=== PATIENT | female | born 1940 | race Caucasian/White ===

== ENCOUNTER 2017-11-10 04:04 | Emergency (ER) | payer MEDICARE, BC ==
[2017-11-10 04:27] VITALS: BP 155/68
--- NOTE | 2017-11-10 04:51 | EDM.PDOC ---
ED HPI GENERAL MEDICAL PROBLEM - General Stated Complaint: Swollen, Pian in Right wrist / hand Time Seen by Provider: 11/10/17 04:15 Source of Information: Reports: Patient History Limitations: Reports: No Limitations - History of Present Illness INITIAL COMMENTS - FREE TEXT/NARRATIVE: According to patient she noticed pain and swelling in her right thumb base today afternoon, and over night the pain has spread to her right wrist and also the wrist is swollen.Pain has gradually got worse, presently rate pain at 9/10. Pt claim that she has not hurt her right hand, or does not remember being bit by insect. Pt calims she had some wine the night before and has been eating perales and chicken for the past 3 meals. No fever or chills. No other joint pain or myalgia. Onset: Today Onset Date: 11/09/17 Onset Time: 12:00 Duration: Constant, Getting Worse Location: Reports: Upper Extremity, Right Quality: Reports: Ache Severity: Severe Improves with: Reports: Cold Therapy, Immobilization Worsens with: Reports: Movement Associated Symptoms: Denies: Confusion, Chest Pain, Cough, Fever/Chills, Headaches, Nausea/Vomiting, Rash, Seizure, Shortness of Breath, Syncope, Weakness - Related Data Allergies Allergy/AdvReac Type Severity Reaction Status Date / Time Penicillins Allergy Disorientat Verified 07/25/15 18:05 ion Home Meds: Home Meds Aspirin 81 mg PO DAILY 07/25/15 [History] Cholecalciferol (Vitamin D3) [Vitamin D] 400 units PO DAILY 07/25/15 [History] Losartan [Cozaar] 1 tab PO DAILY 11/10/17 [History] Past Medical History Gastrointestinal History: Reports: GERD 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: Other Dermatologic History: Fungal Infection to Lt leg - Infectious Disease History Infectious Disease History: Reports: Chicken Pox, Measles, Mumps - Past Surgical History HEENT Surgical History: Reports: Cataract Surgery Other Endocrine Surgeries/Procedures: HX HYPERTRIGLYCERIDEMIA Social & Family History - Family History Family Medical History: Noncontributory - Tobacco Use Smoking Status *Q: Former Smoker Years of Tobacco use: 30 - Recreational Drug Use Recreational Drug Use: No ED ROS GENERAL - Review of Systems Review Of Systems: See Below Constitutional: Denies: Fever, Chills, Fatigue HEENT: Denies: Rhinitis, Sinus Problem, Throat Pain, Throat Swelling Respiratory: Denies: Shortness of Breath, Wheezing, Cough, Sputum Cardiovascular: Denies: Chest Pain, Lightheadedness GI/Abdominal: Denies: Abdominal Pain, Nausea, Vomiting Musculoskeletal: Reports: Hand Pain, Joint Pain, Joint Swelling. Denies: Muscle Pain, Muscle Stiffness Skin: Denies: Bruising, Rash, Erythema ED EXAM, GENERAL - Physical Exam Exam: See Below Exam Limited By: No Limitations General Appearance: Alert, WD/WN, No Apparent Distress Eye Exam: Bilateral Eye: EOMI, PERRL Ears: Normal External Exam, Normal Canal, Hearing Grossly Normal, Normal TMs Ear Exam: Bilateral Ear: TM normal Nose: Normal Inspection, Normal Mucosa, No Blood Throat/Mouth: Normal Inspection, Normal Lips, Normal Teeth, Normal Gums, Normal Oropharynx, Normal Voice, No Airway Compromise Head: Atraumatic, Normocephalic Neck: Normal Inspection, Supple, Non-Tender, Full Range of Motion Respiratory/Chest: No Respiratory Distress, Lungs Clear, Normal Breath Sounds, No Accessory Muscle Use, Chest Non-Tender Cardiovascular: Normal Peripheral Pulses, Regular Rate, Rhythm, No Edema, No Gallop, No JVD, No Murmur, No Rub Extremities: No Pedal Edema, Normal Capillary Refill, Other (Right hand: there is swelling around the writ and also right thumb and other fingers of the hand are swollen compared to left hand. There is no erythema or bruising seen. Very painful range of motion around the wrist. VEry sensitive to touch around the wrist joint.) Neurological: Alert, Oriented, CN II-XII Intact, Normal Reflexes, No Motor/ Sensory Deficits Course - Vital Signs Text/Narrative:: Pt's history is very typical of acute gout attack.She has been having high protein diet for that past few meals, and also has consumed some wine in the past 24 hrs and has developed gradual onset of pain and swelling in the damaged and most used joint, 1st MTP of the right hand( pt is right handed. Pt is 77 years old. Her last creatinine is 2 years old. CBC done today is normal , rules out infective arthritis. Her presentation appears like typical acute gout attack. Her Uric acid is 6.7 at high end of normal, as she has acute attack. Might need to repeat when she is not having an attack. She might need to be started on colcrys and joint resting. I have started her on Colcrys 0.6 mg now and repeat 1 tablet every hr for 3 dose, followed by BID for 3 days or until the pain and swelling resolves. Will place her right wrist in a splint until pain resolves. Avoid high protein diet and alcohol, as the combination triggers gout. If she does get recurrent attack, will need to be started on allopurinol. Last Recorded V/S: Last Vital Signs Temp 98.6 F 11/10/17 04:26 Pulse 94 11/10/17 04:26 Resp 16 11/10/17 04:26 BP 155/68 H 11/10/17 04:26 Pulse Ox 96 11/10/17 04:26 - Orders/Labs/Meds Orders: Active Orders 24 hr Category Date Time Status BASIC METABOLIC PANEL,BMP [CHEM] Stat Lab 11/10/17 04:43 Ordered CBC WITH AUTO DIFF [HEME] Stat Lab 11/10/17 04:42 Ordered URIC ACID [CHEM] Stat Lab 11/10/17 04:43 Ordered Departure - Departure Time of Disposition: 05:35 Disposition: Home, Self-Care 01 Condition: Good Clinical Impression: Acute gout - Discharge Information Instructions: Allopurinol tablets, Gout Referrals: PCP,None [Primary Care Provider] - Additional Instructions: Pt's history is very typical of acute gout attack.She has been having high protein diet for that past few meals, and also has consumed some wine in the past 24 hrs and has developed gradual onset of pain and swelling in the damaged and most used joint, 1st MTP of the right hand( pt is right handed. Pt is 77 years old. Her last creatinine is 2 years old. CBC done today is normal , rules out infective arthritis. Her presentation appears like typical acute gout attack. Her Uric acid is 6.7 at high end of normal, as she has acute attack. Might need to repeat when she is not having an attack. She might need to be started on colcrys and joint resting. I have started her on Colcrys 0.6 mg now and repeat 1 tablet every hr for 3 dose, followed by BID for 3 days or until the pain and swelling resolves. Will place her right wrist in a splint until pain resolves. Avoid high protein diet and alcohol, as the combination triggers gout. If she does get recurrent attack, will need to be started on allopurinol. followup in clinic with her PCP next week. - Problem List & Annotations (1) Acute gout SNOMED Code(s): 01494933 Code(s): M10.9 - GOUT, UNSPECIFIED Status: Acute Current Visit: Yes - Problem List Review Problem List Initiated/Reviewed/Updated: Yes - My Orders Last 24 Hours: My Active Orders 11/10/17 04:42 CBC WITH AUTO DIFF [HEME] Stat 11/10/17 04:43 BASIC METABOLIC PANEL,BMP [CHEM] Stat URIC ACID [CHEM] Stat - Assessment/Plan Last 24 Hours: My Active Orders 11/10/17 04:42 CBC WITH AUTO DIFF [HEME] Stat 11/10/17 04:43 BASIC METABOLIC PANEL,BMP [CHEM] Stat URIC ACID [CHEM] Stat Assessment:: Acute gout Plan: Pt's history is very typical of acute gout attack.She has been having high protein diet for that past few meals, and also has consumed some wine in the past 24 hrs and has developed gradual onset of pain and swelling in the damaged and most used joint, 1st MTP of the right hand( pt is right handed. Pt is 77 years old. Her last creatinine is 2 years old. CBC done today is normal , rules out infective arthritis. Her presentation appears like typical acute gout attack. Her Uric acid is 6.7 at high end of normal, as she has acute attack. Might need to repeat when she is not having an attack. She might need to be started on colcrys and joint resting. I have started her on Colcrys 0.6 mg now and repeat 1 tablet every hr for 3 dose, followed by BID for 3 days or until the pain and swelling resolves. Will place her right wrist in a splint until pain resolves. Avoid high protein diet and alcohol, as the combination triggers gout. If she does get recurrent attack, will need to be started on allopurinol.
[2017-11-10] MEDS ORDERED: Colchicine 0.6 MG Tab ONE ×2 (05:24→05:30)
[2017-11-10] MEDS ORDERED: Ketorolac 30 MG/ML SDV IM ONE (05:24)
[2017-11-10] MEDS ORDERED: Ketorolac 30 MG/ML SDV ONE (05:25)
== END 2017-11-10 05:50 | disposition home or self-care (01) ==
LOC: LB.ED 04:04
DX: M10.9 Gout, unspecified (principal); Z88.0 Allergy status to penicillin; Z79.82 Long term (current) use of aspirin; Z79.899 Other long term (current) drug therapy; Z87.891 Personal history of nicotine dependence
CPT/HCPCS: 36415; 80048; 84550; 85025; 96372; 99283; 99283-25; A9270-GY; J1885

== ENCOUNTER 2019-03-20 09:33 | Inpatient (IN) | payer MEDICARE, BC ==
[2019-03-20] MEDS ORDERED: Tuberculin, PPD 5 Units/0.1 ML 1 ML MDV IDERM ONE (16:55)
--- NOTE | 2019-03-20 17:03 | PCM.HP ---
H&P History of Present Illness - General Date of Service: 03/20/19 Admit Problem/Dx: Admission Diagnosis/Problem Admission Diagnosis/Problem Weakness - History of Present Illness Initial Comments - Free Text/Narative: This is a pleasant 78yo F here 3 days post LTKA. Patient states she is doing very well with minimal pain of the left leg. She has a good appetite and denies any other health concerns. She is sitting in her chair with assistance. She is unable to go home as there is no assistance at home. Duration of Symptoms: Reports: Constant Location: Reports: Lower Extremity, Left Quality: Reports: Ache Severity: Mild Worsens with: Reports: Movement Context: Reports: Activity/Exercise Associated Symptoms: Reports: No Other Symptoms Right Knee Pain Score (Numeric/FACES): 0 - Related Data Allergies/Adverse Reactions: Allergies Allergy/AdvReac Type Severity Reaction Status Date / Time Penicillins Allergy Disorientat Verified 07/25/15 18:05 ion Home Medications: Home Meds Aspirin 81 mg PO DAILY 07/25/15 [History] Cholecalciferol (Vitamin D3) [Vitamin D] 400 units PO DAILY 07/25/15 [History] Losartan [Cozaar] 1 tab PO DAILY 11/10/17 [History] Past Medical History HEENT History: Reports: Cataract, Impaired Vision Other HEENT History: cataract surgery in both eyes Gastrointestinal History: Reports: GERD, GI Bleed Other Gastrointestinal History: approx 3 weeks ago pt was hospitalized with a GI bleed MAGAZINE HAND History: Reports: Musculoskeletal History: Reports: Arthritis, Osteoarthritis, RA Dermatologic History: Reports: Other (See Below) Other Dermatologic History: Fungal Infection to Lt leg, pt has itchy rash to back arms and hands, - Infectious Disease History Infectious Disease History: Reports: Measles, Mumps Other Infectious Disease History: as a child - Past Surgical History HEENT Surgical History: Reports: Cataract Surgery Other Endocrine Surgeries/Procedures: HX HYPERTRIGLYCERIDEMIA Social & Family History - Family History Family Medical History: Noncontributory - Caffeine Use Caffeine Use: Reports: Coffee Other Caffeine Use: 1/day coffee, intermittent pop H&P Review of Systems - Review of Systems: Review Of Systems: ROS reveals no pertinent complaints other than HPI. General: Reports: Weakness HEENT: Reports: No Symptoms Pulmonary: Reports: No Symptoms Cardiovascular: Reports: No Symptoms Gastrointestinal: Reports: No Symptoms Genitourinary: Reports: No Symptoms Musculoskeletal: Reports: Joint Swelling Skin: Reports: Wound (healing well) Psychiatric: Reports: No Symptoms Neurological: Reports: No Symptoms Exam - Exam Exam: See Below - Exam General: Alert, Oriented, Cooperative HEENT: PERRLA, Conjunctiva Clear, EACs Clear, EOMI, Hearing Intact Neck: Supple, Trachea Midline Lungs: Clear to Auscultation, Normal Respiratory Effort Cardiovascular: Regular Rate, Regular Rhythm GI/Abdominal Exam: Normal Bowel Sounds, Soft, Non-Tender Extremities: Normal Inspection Peripheral Pulses: 2+: Dorsalis Pedis (L), Dorsalis Pedis (R) Skin: Warm, Dry, Intact, Wound Neurological: Cranial Nerves Intact, Reflexes Equal Bilateral - Problem List (1) Post-operative state SNOMED Code(s): 63754320 ICD Code: Z98.890 - OTHER SPECIFIED POSTPROCEDURAL STATES Status: Acute Priority: High Current Visit: Yes (2) History of arthroplasty of left knee SNOMED Code(s): 432766366 ICD Code: Z96.652 - PRESENCE OF LEFT ARTIFICIAL KNEE JOINT Status: Acute Priority: High Current Visit: Yes Problem List Initiated/Reviewed/Updated: Yes Orders Last 24hrs: Active Orders 24 hr Category Date Time Status Patient Status [ADT] Routine ADT 03/20/19 16:55 Ordered Consult to Head Of Physics [CONS] Routine Cons 03/20/19 16:55 Ordered Consult to Home Health [CONS] Routine Cons 03/20/19 16:55 Ordered OT Evaluation and Treatment [CONS] Routine Cons 03/20/19 16:55 Ordered PT Evaluation and Treatment [CONS] Routine Cons 03/20/19 16:55 Ordered Tuberculin, PPD [Aplisol] Med 03/20/19 16:55 Once 5 unit IDERM ONETIME ONE Resuscitation Status Routine Resus Stat 03/20/19 16:55 Ordered Assessment/Plan Comment:: Patient placed in swing bed for rehabilitation and management of pain. Patient is stable with no current concerns. We will continue current medications and pain management. PT/OT for strengthening and ADLs. Change aquacel on Tu. per Ortho instructions. Routine scheduled f/u.
[2019-03-21] MEDS: oxyCODONE 5 MG Tab PO PRN ×2 (02:55→18:29)
[2019-03-21] MEDS: Aspirin 81 MG Tab.Chew PO SCH (08:45)
[2019-03-21] MEDS: Losartan 50 MG Tab PO SCH (08:45)
[2019-03-21] MEDS: Cholecalciferol (Vitamin D3) 400 Unit Tab PO SCH (10:09)
[2019-03-21] MEDS: Acetaminophen 325 MG Tab PO PRN ×2 (10:19→22:56)
[2019-03-22] MEDS: Acetaminophen 325 MG Tab PO PRN ×2 (06:35→14:03)
[2019-03-22] MEDS: Aspirin 81 MG Tab.Chew PO SCH (07:35)
[2019-03-22] MEDS: Losartan 50 MG Tab PO SCH (07:36)
[2019-03-22] MEDS: Cholecalciferol (Vitamin D3) 400 Unit Tab PO SCH (07:37)
[2019-03-23] MEDS ORDERED: Acetaminophen 650 MG Tab.ER ONE (07:04)
[2019-03-23] MEDS: Losartan 50 MG Tab PO SCH (07:06)
[2019-03-23] MEDS: Aspirin 81 MG Tab.Chew PO SCH (07:06)
[2019-03-23] MEDS: Acetaminophen 325 MG Tab PO PRN ×2 (07:09→19:40)
[2019-03-23] MEDS: Cholecalciferol (Vitamin D3) 400 Unit Tab PO SCH (07:11)
[2019-03-24] MEDS: Acetaminophen 325 MG Tab PO PRN ×4 (03:05→22:47)
[2019-03-24] MEDS: Cholecalciferol (Vitamin D3) 1,000 Unit Tab PO SCH (08:01)
[2019-03-24] MEDS: Losartan 50 MG Tab PO SCH (08:01)
[2019-03-24] MEDS: Aspirin 81 MG Tab.Chew PO SCH (08:01)
[2019-03-25] MEDS: Acetaminophen 325 MG Tab PO PRN ×3 (05:21→19:21)
[2019-03-25] MEDS: Aspirin 81 MG Tab.Chew PO SCH (08:08)
[2019-03-25] MEDS: Cholecalciferol (Vitamin D3) 1,000 Unit Tab PO SCH (08:08)
[2019-03-25] MEDS: Losartan 50 MG Tab PO SCH (08:13)
[2019-03-25] MEDS: Hydrochlorothiazide 12.5 MG Cap PO SCH (11:20)
[2019-03-26] MEDS: Acetaminophen 325 MG Tab PO PRN ×3 (02:24→19:29)
[2019-03-26] MEDS: Losartan 50 MG Tab PO SCH (09:02)
[2019-03-26] MEDS: Cholecalciferol (Vitamin D3) 1,000 Unit Tab PO SCH (09:03)
[2019-03-26] MEDS: Aspirin 81 MG Tab.Chew PO SCH (09:03)
[2019-03-26] MEDS: Hydrochlorothiazide 12.5 MG Cap PO SCH (09:03)
[2019-03-27] MEDS: Acetaminophen 325 MG Tab PO PRN ×2 (02:11→08:12)
[2019-03-27] MEDS: Aspirin 81 MG Tab.Chew PO SCH (08:09)
[2019-03-27] MEDS: Hydrochlorothiazide 12.5 MG Cap PO SCH (08:10)
[2019-03-27] MEDS: Losartan 50 MG Tab PO SCH (08:11)
[2019-03-27] MEDS: Cholecalciferol (Vitamin D3) 1,000 Unit Tab PO SCH (08:11)
[2019-03-27 08:14] VITALS: BP 146/80
--- NOTE | 2019-03-27 10:44 | PCM.DCSUM1 ---
Discharge Summary - Hospital Course Free Text/Narrative:: Pt was admitted on 03/20/19 for swing bed level of care S/P left Knee arthroplasty , done by Dr. Dupree at [facility]. She has attained maximum potiential as inpatient. She is able to ambulate with minimal pain. Therapy has cleared patient, hence she has been planned for discharge today. Pt has had an uneventful hospital stay. The left knee wound appears clean and healthy. Continue home meds. Pt does claim she can take tylenol 650mg every 6 hrs as needed for pain. She does not think she needs anything stronger for pain. She does have few tramadol at home, which she think she can take if her pain worsen. Pt does have appointment with Jaja Huggins for staple removal next week. Advised to keep it. Also has been scheduled for outpatient physical therapy. Brief History: Pt was admitted on 03/20 19 for swing bed for OT and PT care. Kindly see H&P for details. Diagnosis: Stroke: No Modified Trosper Scale: No Symptoms at All Modified Galo Scale Score: 0 - Discharge Data Discharge Date: 03/27/19 Discharge Disposition: Home, Self-Care 01 Condition: Good - Patient Summary/Data Consults: Consultations 03/20/19 16:55 Consult to Help Desk Support Specialist [CONS] Routine Comment: Physician Instructions: Quantity: Consult to Home Health [CONS] Routine Comment: Physician Instructions: OT Evaluation and Treatment [CONS] Routine Please Evaluate and Treat. OT Reason for Consult: ADL's This query below is only for informational purposes and is not editable. Admission Diagnosis/Problem: Weakness PT Evaluation and Treatment [CONS] Routine Please Evaluate and Treat. PT Reason for Consult: Ambulation This query below is only for informational purposes and is not editable. Admission Diagnosis/Problem: Weakness - Patient Instructions Diet: Regular Diet as Tolerated Fluid Restriction: 1500 mL Activity: As Tolerated Showering/Bathing: May Shower Wound/Incision Care: Keep Operative Site/Wound Site Clean and Dry - Discharge Plan *PRESCRIPTION DRUG MONITORING PROGRAM REVIEWED*: Not Applicable *COPY OF PRESCRIPTION DRUG MONITORING REPORT IN PATIENT GAMAL: Not Applicable Home Medications: Home Meds Losartan/Hydrochlorothiazide [Losartan-HCTZ 50-12.5 MG] 1 ea PO DAILY 03/24/19 [ History] Ranitidine HCl [Zantac] 150 mg PO DAILY 03/24/19 [History] Aspirin 81 mg PO DAILY tab.chew 03/27/19 [Rx] Cholecalciferol (Vitamin D3) [Vitamin D3] 1,000 units PO DAILY tablet 03/27/19 [Rx] Patient Handouts: Fall Prevention in the Home, Adult, [id number], How To Use a Four-Wheeled Walker, Total Knee Replacement, Care After, Acetaminophen tablets or caplets - Discharge Summary/Plan Comment DC Time >30 min.: Yes Discharge Summary/Plan Comment: Continue home meds. Pt does claim she can take tylenol 650mg every 6 hrs as needed for pain. She does not think she needs anything stronger for pain. She does have few tramadol at home, which she think she can take if her pain worsen. Pt does have appointment with Jaja Huggins for staple removal next week. Advised to keep it. Also has been scheduled for outpatient physical therapy. - General Info Date of Service: 03/27/19 Functional Status: Reports: Pain Controlled, Tolerating Diet, Ambulating, Urinating - Review of Systems General: Denies: Fever, Weakness, Fatigue HEENT: Denies: Headaches, Sinus Congestion, Sore Throat, Rhinitis Pulmonary: Denies: Shortness of Breath, Cough, Sputum Cardiovascular: Denies: Chest Pain, Lightheadedness Gastrointestinal: Denies: Abdominal Pain, Nausea, Vomiting Genitourinary: Denies: Dysuria, Frequency, Urgency Musculoskeletal: Reports: Joint Pain, Joint Swelling Skin: Reports: Bruising. Denies: Pruritis, Rash Neurological: Denies: Confusion, Dizziness, Headache, Numbness, Tingling - Patient Data Vitals - Most Recent: Last Vital Signs Temp 97.8 F 03/27/19 07:35 Pulse 77 03/27/19 07:35 Resp 18 03/27/19 07:35 BP 146/80 H 03/27/19 08:11 Pulse Ox 98 03/27/19 07:35 Weight - Most Recent: 74.843 kg I&O - Last 24 hours: Intake & Output 03/26/19 03/27/19 03/27/19 22:59 06:59 14:59 Intake Total 320 Balance 320 OLGA Results - Last 24 hrs: Microbiology 03/24/19 14:00 MRSA Surveillance Culture - Final Nares, Unspecified NO MRSA ISOLATED Med Orders - Current: Current Medications Acetaminophen (Tylenol) 650 mg PO Q6H PRN PRN Reason: Pain Last Admin: 03/27/19 08:12 Dose: 650 mg Aspirin (Aspirin) 81 mg PO DAILY [facility] Last Admin: 03/27/19 08:09 Dose: 81 mg Cholecalciferol (Vitamin D3) 1,000 units PO DAILY [facility] Last Admin: 03/27/19 08:11 Dose: 1,000 units Hydrochlorothiazide (Hydrochlorothiazide) 12.5 mg PO DAILY [facility] Last Admin: 03/27/19 08:10 Dose: 12.5 mg Losartan Potassium (Cozaar) 50 mg PO DAILY [facility] Last Admin: 03/27/19 08:11 Dose: 50 mg Oxycodone HCl (Oxycodone) 5 mg PO Q6H PRN PRN Reason: Pain Last Admin: 03/21/19 18:29 Dose: 5 mg Discontinued Medications Acetaminophen (Tylenol Arthritis Pain) Confirm Administered Dose 650 mg .ROUTE .STK-MED ONE Stop: 03/23/19 07:05 Last Admin: 03/23/19 07:09 Dose: Not Given Cholecalciferol (Vitamin D3) 400 units PO DAILY [facility] Last Admin: 03/23/19 07:11 Dose: Not Given Tuberculin PPD (Aplisol) 5 unit IDERM ONETIME ONE Stop: 03/20/19 16:56 Last Admin: 03/21/19 12:42 Dose: 5 unit - Exam General: Reports: Alert, Oriented HEENT: Reports: Pupils Equal, Pupils Reactive, EOMI, Mucous Membr. Moist/[place] Neck: Reports: Supple Lungs: Reports: Clear to Auscultation, Normal Respiratory Effort Cardiovascular: Reports: Regular Rate, Regular Rhythm Extremities: Normal Range of Motion, Normal Capillary Refill, Other (left knee minimal swelling around the knee. Weight bearing and ambulating. The stapled wound is clen and appear dry and healthy. minmal tenderness along the suture line.) Skin: Reports: Warm, Intact
== END 2019-03-27 13:15 | disposition home or self-care (01) | DRG 948 ==
LOC: LB.MS 14:10 → UNDOADMIN 14:10 → LB.MS 16:55
PROVIDERS: ADMIT Family Medicine; ATTEND Family Medicine
DX: R53.1 Weakness (principal); Z47.1 Aftercare following joint replacement surgery; Z98.890 Other specified postprocedural states; Z96.652 Presence of left artificial knee joint; H54.7 Unspecified visual loss; K21.9 Gastro-esophageal reflux disease without esophagitis; M19.90 Unspecified osteoarthritis, unspecified site; M06.9 Rheumatoid arthritis, unspecified; L29.9 Pruritus, unspecified; Z88.0 Allergy status to penicillin; Z79.82 Long term (current) use of aspirin
CPT/HCPCS: 86580; 97110-GP; 97116-GP; 97161-GP; 97165-GO; 97530-GO; 97530-GP; 97535-GO; A9270-GY

== ENCOUNTER 2019-09-14 08:30 | Day surgery (SDC) | payer MEDICARE, BC ==
[~2019-09-14 08:30] MED LIST: CLINDAMYCIN PHOSPHATE IV SCH; Clindamycin Phosphate 900 MG/6 ML SDV IV ONE; SODIUM CHLORIDE 0.9% IV SCH
[2019-09-14] MEDS: Lactated Ringers 1,000 ML IV SCH (09:50)
[2019-09-14] MEDS ORDERED: Acetaminophen/HYDROcodone 325-5 MG Tab PO PRN (10:55)
[2019-09-14] MEDS ORDERED: Propofol 200 MG/20 ML SDV ONE (11:30)
[2019-09-14 12:50] VITALS: BP 120/52; PULSE 63
--- NOTE | 2019-09-15 08:05 | OR ---
DATE OF OPERATION: 09/14/2019 SURGEON: Osmany Dupree MD PREOPERATIVE DIAGNOSIS: Right carpal tunnel syndrome. POSTOPERATIVE DIAGNOSIS: Right carpal tunnel syndrome. PROCEDURE: Right carpal tunnel release. ANESTHESIA: Monitored anesthesia care. SPECIMENS: None. DRAINS: None. ESTIMATED BLOOD LOSS: Minimal. COMPLICATIONS: None apparent. DESCRIPTION OF PROCEDURE: After informed consent was obtained, the patient was brought to the operating room, where monitored anesthesia care was performed uneventfully. The right upper extremity was prepped and draped sterilely. A time-out was held and antibiotics were confirmed. The limb was exsanguinated and tourniquet inflated. An incision was made in line with the radial border of the ring finger from a line shy of Cardenas's cardinal line to the volar wrist crease. We dissected sharply through the skin, subcutaneous tissue, and palmar aponeurosis down onto the transverse carpal ligament. This was released in its entirety. The distal aspect of the volar antebrachial fascia was released with tenotomies. We inspected the median nerve and its motor branch. There were no abnormalities. There were no space-occupying lesions within the carpal canal. We copiously irrigated and closed with 4-0 nylon. Sterile dressings were applied, and the patient was brought to recovery room in stable condition. There were no apparent complications. NICKOLAS/SAV /[id number]
== END 2019-09-14 13:54 | disposition home or self-care (01) ==
LOC: LB.SDS 08:30
PROVIDERS: ATTEND Orthopaedic Surgery
DX: G56.01 Carpal tunnel syndrome, right upper limb (principal)
CPT/HCPCS: J2704; J7120

== ENCOUNTER 2023-12-24 11:46 | Emergency (ER) | payer MEDICARE, BC ==
[2023-12-24 13:27] LABS: APPEARANCE,URINE SLIGHTLY CLOUDY (CLEAR); BILIRUBIN,URINE NEGATIVE (NEGATIVE); COLOR,URINE YELLOW; GLUCOSE,URINE NEGATIVE (NEGATIVE); KETONES,URINE NEGATIVE (NEGATIVE); LEUKOCYTE ESTERASE,URINE TRACE (NEGATIVE); NITRITE,URINE NEGATIVE (NEGATIVE); OCCULT BLOOD,URINE TRACE-LYSED (NEGATIVE); PROTEIN,URINE NEGATIVE (NEGATIVE); UROBILINOGEN,URINE 0.2 E.U./dL (0.2-1.0)
[2023-12-24 13:36] LABS: SQUAMOUS EPITHELIAL CELLS,UR FEW /HPF
[2023-12-24 13:41] LABS: BASOPHILS ABSOLUTE AUTO 0.03 K/uL (0.02-0.10); BASOPHILS PERCENT AUTO 0.3 % (0.0-0.5); EOSINOPHILS ABSOLUTE AUTO 0.13 K/uL (0.04-0.40); EOSINOPHILS PERCENT AUTO 1.4 % (1.0-5.0); HEMATOCRIT 39.4 % (37.0-47.0); HEMOGLOBIN 13.2 g/dL (11.5-16.5); LYMPHOCYTES ABSOLUTE AUTO 1.62 K/uL (1.50-4.00); LYMPHOCYTES PERCENT AUTO 17.6 % (20.0-40.0); MEAN CORPUSCULAR HEMOGLOBIN 29.3 pg (27.0-32.0); MEAN CORPUSCULAR HGB CONC 33.5 g/dL (31.0-35.0); MEAN CORPUSCULAR VOLUME 87 fL (76-96); MEAN PLATELET VOLUME 9.7 fL (6.0-10.0); MONOCYTES ABSOLUTE AUTO 0.81 K/uL (0.20-0.80); MONOCYTES PERCENT AUTO 8.8 % (3.0-10.0); NEUTROPHILS ABSOLUTE AUTO 6.63 K/uL (2.00-7.50); NEUTROPHILS PERCENT AUTO 71.9 % (45.0-70.0); PLATELET COUNT,PLT 270 K/uL (150-500); RED BLOOD CELL COUNT 4.51 M/uL (3.80-5.80); WHITE BLOOD CELL COUNT,WBC 9.2 K/uL (4.0-11.0)
[2023-12-24 14:04] LABS: A/G RATIO 0.8 (0.8-2.0); ALBUMIN 2.9 g/dL (3.4-5.0); ANION GAP 12.4 mmol/L (5.0-15.0); BILIRUBIN TOTAL 0.6 mg/dL (0.0-1.0); BUN/CREATININE RATIO 19.5 (6-25); CALCIUM 8.5 mg/dL (8.5-10.1); CARBON DIOXIDE,CO2 26.6 mmol/L (21.0-32.0); CREATININE 1.13 mg/dL (0.55-1.02); PROTEIN TOTAL,TP 6.5 g/dL (6.4-8.2)
[2023-12-24 14:09] LABS: EST CRCL DRUG DOSING (CG) 31.2 mL/min
[2023-12-24 15:13] VITALS: BP 170/60; PULSE 80
== END 2023-12-24 15:10 | disposition home or self-care (01) ==
LOC: LB.ED 11:46
DX: N83.201 Unspecified ovarian cyst, right side (principal); Z91.040 Latex allergy status; Z88.0 Allergy status to penicillin; Z88.8 Allergy status to other drugs, medicaments and biological substances
CPT/HCPCS: 36415; 74176; 80053; 81001; 85025; 87086; 99284